=== PATIENT | female | born 1960 | race Caucasian/White ===

== ENCOUNTER → 2017-03-19 | Outpatient (CLI) | payer BC ==
[~2017-03-19] MED LIST: BIRTH CONTROL; CIPRO250 MG PO; EPINEPHRIN0.3 MG/0.1 IM; EPINEPHRIN0.3 MG/0.2 IM; EPIPEN0.3 MG/0.1 IM; FLOMAX0.4 M1 PO; KLOR-CON PO; LORTAB 5/500 TA1 TA1 PO; MOTRIN600 M1 PO; PHENERGAN25 M1 PO; PREDNISONE PO; SYNTHROID PO; ZOFRANODT PO; ZOLOFT
[2017-03-19 13:20] LABS: HEMATOCRIT 42.9 % (35.0-45.0); HEMOGLOBIN 14.5 gm/dL (12.0-16.0); MEAN CELL VOLUME 89.2 FL (83-96); MEAN CORPUSCULAR HEMOGLOBIN 30.1 PG (28-34); MEAN CORPUSCULAR HGB CONC 33.7 g/dL (30-36); RED BLOOD COUNT 4.81 X10e (3.90-5.30); RED CELL DISTRIBUTION WIDTH 13.2 % (11.0-15.5); WHITE BLOOD COUNT 6.9 X10e3 (4.0-10.5)
[2017-03-19 14:02] LABS: ALBUMIN SERUM 4.3 g/dL (3.5-5.0); BILIRUBIN,TOTAL 1.2 mg/dL (0.2-2.0); BUN/CREATININE RATIO 25.71; CALCIUM SERUM 9.4 mg/dL (8.4-10.2); CREATININE SERUM 0.7 mg/dL (0.6-1.4); GLOM FILT RATE Estimated 94.8 mL/min (>60); POTASSIUM 4.3 mmol/L (3.5-5.1); PROTEIN TOTAL SERUM 6.9 g/dL (6.0-8.3)
[2017-03-23 15:10] LABS: TISSUE TRANSGLUTAMINASE IGA AB 1 U/mL (<4); TISSUE TRANSGLUTAMINASE IGG 7 U/mL (<6)
== END | disposition home or self-care (01) ==
LOC: CLAB 12:44
PROVIDERS: Nurse Practitioner
DX: R10.12 Left upper quadrant pain (principal)
CPT/HCPCS: 36415; 80053; 82150; 83516; 83690; 85027